=== PATIENT | male | born 1990 | race Two or more races ===

== ENCOUNTER 2018-09-02 15:16 | Emergency (ER) | payer SELFPAY ==
[~2018-09-02] VITALS: Ht 180.3 cm; Wt 120.2 kg
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
[2018-09-02] MEDS ORDERED: IBUPROFEN 600 MG TABLET PO ONE ×2 (16:00→16:24)
[2018-09-02] MEDS ORDERED: METHOCARBAMOL (500MG) 500 MG TABLET PO ONE (16:00)
--- NOTE | 2018-09-02 16:15 | NUR ---
PT TAKEN TO CT VIA [facility]
[2018-09-02] MEDS ORDERED: METHOCARBAMOL (500MG) 500 MG TABLET ONE (16:24)
--- NOTE | 2018-09-02 17:07 | NUR ---
C-COLLAR REMOVED PER DR CUMMINGS
--- NOTE | 2018-09-02 17:15 | NUR ---
Patient discharged to home in stable condition. Written and verbal after care instructions given. Patient verbalizes understanding of instruction.
[2018-09-02 18:18] VITALS: BP 127/79
== END 2018-09-02 17:15 | disposition home or self-care (01) ==
LOC: ER 15:18
DX: S16.1XXA Strain of muscle, fascia and tendon at neck level, initial encounter (principal); S39.012A Strain of muscle, fascia and tendon of lower back, initial encounter; F17.200 Nicotine dependence, unspecified, uncomplicated; Z98.890 Other specified postprocedural states; Z60.2 Problems related to living alone; V49.49XA Driver injured in collision with other motor vehicles in traffic accident, initial encounter; Y93.89 Activity, other specified; Y92.413 State road as the place of occurrence of the external cause; Y99.8 Other external cause status
CPT/HCPCS: 72125-TC; 72131-TC